=== PATIENT | male | born 1960 | race Hispanic/Latino ===

== ENCOUNTER 2020-05-08 12:24 | Emergency (ER) | payer BC, OTHER ==
[~2020-05-08] VITALS: Ht 167.6 cm; Wt 120.2 kg
[~2020-05-08 12:24] MED LIST: ASPIRIN81 M2 PO; CEFTIN500 MG PO; LEVAQUIN750 MG PO; Z LAMISIL; Z.0.ALBUTEROL SULF8. INH; Z.0.FLONASE16 GM; Z.0.LEVAQUIN500 MG PO; Z.0.PRAVASTATIN SOD4 PO; Z.2.METFORMIN HCL500 PO; Z.5.AMLODIPINE-BEN1 PO; [UNRECOGNIZED DRUG - OTHER] PO
[2020-05-08] MEDS ORDERED: AZITHROMYCIN250 MG PO (12:56)
--- NOTE | 2020-05-08 13:06 | Emergency Department Note ---
History of Present Illnes History of Present Illness Chief Complaint: COVID PUI History of Present Illness This is a 60 year old male arrives to the ED after being evaluated as an outpatient freestanding. Patient states he had chest x-ray done which showed a left lower lobe pneumonia. Patient states he is having bodyaches and had a cold exposure about 10 days ago. Patient states he had a cold with tests done last Friday which was negative. Patient states the bodyaches began several days ago which is what prompted him to go to the urgent care. Patient denies any shortness of breath denies any fevers denies any complaints states the bodyaches is what caused him to go to the urgent care as a follow-up. . 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 Any updates have been documented here. Past Medical History Recent Fever: No Clinical Suspicion of Infectio: No New/Unexplained Change in Ment: No Past Medical History: Hypertension, Diabetes, COPD, Kidney Stones, Hyperlipedemia Other Medical History: HLD Other Surgery: lithotripsy Social History Smoking Cessation: Former smoker Counseling Performed: No Alcohol Use: None Any Illegal Drug Use: No TB Exposure/Symptoms: No Physically hurt or threatened: No Family History Family history of heart diseas: Yes Other Last Tetanus: Unknown Last Flu: Y Last Pneumovax: Y Review of Systems Review of Systems Constitutional: Reports as per HPI, Reports weakness EENTM: Reports no symptoms Cardiovascular: Reports no symptoms Respiratory: Reports no symptoms Gastrointestinal: Reports no symptoms Genitourinary: Reports no symptoms Musculoskeletal: Reports no symptoms Integumentary: Reports no symptoms Neurological: Reports no symptoms Psychological: Reports no symptoms Endocrine: Reports no symptoms Hematological/Lymphatic: Reports no symptoms Physical Exam Related Data Allergies: Coded Allergies: ibuprofen (Verified Allergy, Intermediate, rash, 09/30/12) Triage Vital Signs Vital Signs Date Time Temp Pulse Resp B/P (MAP) Pulse Ox O2 Delivery O2 Flow Rate FiO2 05/08/20 12:42 99.4 82 18 147/77 96 Vital signs reviewed: Yes Physical Exam CONSTITUTIONAL Constitutional: Present well-developed, Present well-nourished HENT HENT: Present normocephalic, Present atraumatic, Present oropharynx clear/moist , Present nose normal HENT L/R: Present left ext ear normal, Present right ext ear normal EYES Eyes: Reports PERRL, Reports conjunctivae normal NECK Neck: Present ROM normal PULMONARY Pulmonary: Present effort normal, Present breath sounds normal CARDIOVASCULAR Cardiovascular: Present regular rhythm, Present heart sounds normal, Present capillary refill normal, Present normal rate GASTROINTESTINAL Abdominal: Present soft, Present nontender, Present bowel sounds normal GENITOURINARY Genitourinary: Present exam deferred SKIN Skin: Present warm, Present dry MUSCULOSKELETAL Musculoskeletal: Present ROM normal NEUROLOGICAL Neurological: Present alert, Present oriented x 3, Present no gross motor or sensory deficits PSYCHOLOGICAL Psychological: Present mood/affect normal, Present judgement normal Results Imaging Imaging results reviewed: Yes Assessment & Plan Medical Decision Making MDM 60-year-old male arrives the ED complains of body aches. Had a coworker test positive for Covid. Patient clinically appears very well, spoke to patient at length while he remained on a pulse oximeter and his oxygen saturation remained 98% even when speaking. Patient arrived with him with medics press chest x-ray results which showed a left lower lobe pneumonia. Given unilateral pneumonia normal oxygen saturation and otherwise well-appearing male patient is safe to discharge home. Patient informed of indications to return to the emergency department. Spoke to patient at length about appropriate proning techniques abd written information also given. Assessment & Plan Final Impression: (1) COVID-19 Depart Disposition: ADMITTED Last Vital Signs Date Time Temp Pulse Resp B/P (MAP) Pulse Ox O2 Delivery O2 Flow Rate FiO2 05/08/20 12:42 99.4 82 18 147/77 96 Home Meds Active Scripts Azithromycin (Z-DIDIER) 250 Mg Tablet, 1 PKG PO DIRECTED, #1 PKG 0 Refills Prov:LORE BAHSIMI, DO 05/08/20 Reported Medications Cefuroxime Axetil (CEFTIN) 500 Mg Tablet, PO 10/03/12 Levofloxacin (LEVAQUIN) 750 Mg Tablet, PO 10/03/12 Cefuroxime Axetil (CEFTIN) 500 Mg Tablet, PO 10/03/12 Albuterol Sulfate (Albuterol Sulfate Hfa) 8.5 Gm Hfa.aer.ad, 8.5 GM INH 03/09/12 Aspirin (Aspirin) 81 Mg Tablet, 81 MG PO DAILY 12/29/11 Hydroxyurea (Hydroxyurea) 500 Mg Capsule, 500 MG PO DAILY 12/29/11 Amlodipine Besylate/Benazepril (Amlodipine-Benazepril 10-20 Mg) 1 Each Capsule, 10 - 20 MG PO DAILY 12/29/11 Pravastatin Sodium (Pravastatin Sodium) 40 Mg Tablet, 40 MG PO DAILY 12/29/11 ALIDA BAH, May 08, 2020 13:06
== END 2020-05-08 13:04 | disposition home or self-care (01) ==
LOC: ER 12:24
DX: U07.1 COVID-19 (principal); I10 Essential (primary) hypertension; E11.9 Type 2 diabetes mellitus without complications; E78.5 Hyperlipidemia, unspecified; J44.9 Chronic obstructive pulmonary disease, unspecified; Z87.891 Personal history of nicotine dependence
CPT/HCPCS: 87635; 99282

== ENCOUNTER → 2020-06-07 | Outpatient (CLI) | payer BC, OTHER ==
[~2020-06-07] MED LIST changes: +AZITHROMYCIN250 MG PO
--- NOTE | 2020-06-07 10:44 | Diagnostic Imaging Report ---
EXAMINATION: CHEST 2 VIEWS INDICATION: Shortness of breath COMPARISON: None FINDINGS: LINES/TUBES:None LUNGS:The lungs are moderately inflated. Multifocal bilateral lower lung predominant opacities. PLEURA:Trace right pleural effusion. No pneumothorax. MEDIASTINUM:The cardiomediastinal silhouette appears normal in size and shape. Atherosclerotic calcifications of the thoracic aorta. BONES/SOFT TISSUES:No acute osseous injury. ABDOMEN:No free air under the diaphragm. IMPRESSION: Multifocal bilateral lower lung predominant patchy opacities, concerning for pneumonia in the proper clinical setting. Trace right pleural effusion. Signed by: Prisca Penn MD on 06/07/2020 10:41 AM
== END ==
LOC: RAD 10:05
PROVIDERS: ATTEND Internal Medicine
DX: R06.02 Shortness of breath (principal)
CPT/HCPCS: 71046

== ENCOUNTER → 2020-07-11 | Outpatient (CLI) | payer BC ==
--- NOTE | 2020-07-11 16:27 | Diagnostic Imaging Report ---
EXAM: CT Chest WITHOUT intravenous contrast - Interstitial lung disease protocol 07/11/2020 3:54 PM INDICATION: Pneumonia COMPARISON: Chest radiograph 06/07/2020 TECHNIQUE: Chest was scanned utilizing a multidetector helical scanner from the lung apex through the level of the adrenal glands without administration of IV contrast and then repeated with the patient in prone position in inspiration and expiration per ILD protocol. Coronal and sagittal reformations were obtained. Interstitial lung disease protocol was performed. IV CONTRAST: None RADIATION DOSE: Total DLP: 1645 mGy*cm. Dose modulation, iterative reconstruction, and/or weight based adjustment of the mA/kV was utilized to reduce the radiation dose to as low as reasonably achievable. COMPLICATIONS: None FINDINGS: LINES/ TUBES: None. LUNGS AND AIRWAYS: The central airways are patent. No focal consolidation or pulmonary mass lesion. Diffuse bilateral lower lobe predominant interstitial thickening without honeycombing which persists on the inspiratory and expiratory prone images. PLEURA: The pleural spaces are clear. HEART AND MEDIASTINUM: The thyroid gland is normal. No supraclavicular, axillary, or hilar lymphadenopathy. Multiple prominent mediastinal lymph nodes measure up to 9 mm short axis and do not meet size criteria for lymphadenopathy. The heart is not enlarged. No pericardial effusion. Atherosclerotic calcifications of the coronary arteries, thoracic aorta, and possible great vessels. UPPER ABDOMEN: Severe diffuse hepatic steatosis. 4 mm right upper pole renal calculus. No additional acute findings in the upper abdomen. BONES: No acute osseous injury. No suspicious lytic or blastic lesions. SOFT TISSUES: Unremarkable. IMPRESSION: Diffuse bilateral lower lobe predominant interstitial opacities without honeycombing. In the setting of recent reported history of COVID-19 viral pneumonia, these could represent post-infectious findings of improving multifocal viral pneumonia (imaging findings often lag behind clinical recovery) or alternatively chronic fibrotic changes related to nonspecific interstitial lung disease. Severe diffuse hepatic steatosis. Right upper pole 4mm renal calculus. Signed by: Prisca Penn MD on 07/11/2020 4:24 PM
== END ==
LOC: CT 14:59
PROVIDERS: ATTEND Internal Medicine
DX: J84.9 Interstitial pulmonary disease, unspecified (principal)
CPT/HCPCS: 71250

== ENCOUNTER → 2021-10-02 | Outpatient (CLI) | payer SELFPAY | LOC: RAD 13:12 | PROVIDERS: ATTEND Internal Medicine | DX: J15.9 Unspecified bacterial pneumonia (principal) | CPT/HCPCS: 71046 ==

== ENCOUNTER → 2024-08-20 | Day surgery (SDC) | payer BC, MEDICARE ==
[2024-08-17 09:59] LABS: BASOPHILS # (AUTO) 0.1 (0.0-0.1); EOSINOPHILS # (AUTO) 0.3 (0.0-0.4); EOSINOPHILS % 2.8 % (0.0-6.0); HEMATOCRIT 55.2 % (38.2-49.6); LYMPHOCYTES # (AUTO) 2.8 (1.0-3.2); LYMPHOCYTES % 27.1 % (18.0-39.1); MEAN CORPUSCULAR HEMOGLOBIN 29.1 pg (28-32); MEAN CORPUSCULAR HGB CONC 30.8 g/dL (31-35); MEAN CORPUSCULAR VOLUME 94.5 fL (81-99); MONOCYTES # (AUTO) 0.7 (0.2-0.8); MONOCYTES % 6.7 % (4.4-11.3); NEUTROPHILS # (AUTO) 6.3 (2.1-6.9); PLATELET COUNT 190 x10e3/uL (140-360); RED BLOOD COUNT 5.84 x10e6/uL (4.3-5.7); RED CELL DISTRIBUTION WIDTH 15.4 % (11.7-14.4); WHITE BLOOD COUNT 10.39 x10e3/uL (4.8-10.8)
[2024-08-17 10:30] LABS: ANION GAP 16.2 mmol/L (8-16); CALCIUM 8.9 mg/dL (8.4-10.2); CREATININE, SERUM 1.19 mg/dL (0.72-1.25); POTASSIUM 4.2 mmol/L (3.5-5.1)
[~2024-08-20] MED LIST changes: +AMLODIPINE BESY10 MG PO; +ASPIRIN81 MG PO; +BENAZEPRIL HCL10 MG PO; +BUPIVACAINE 0.5%/EPI 30 ML SDV INJ ONE; +DEXAMETHASONE SOD PHOS INJ 4 MG/ML SDV ONE; +FENTANYL CITRATE/PF 100MCG/2 ML INJ ONE; +HYDROMORPHONE 1MG/1ML INJ ONE; +LIDOCAINE HCL 2% LOCAL INJ 5 ML SDV VIAL INJ ONE; +METFORMIN HCL500 MG PO; +METOPROLOL SUCC50 MG PO; +MIDAZOLAM HCL 2 MG/2 ML VIAL ONE; +MOUNJARO5 MG/0.5 M SC; +ONDANSETRON HCL INJ 2MG/ML 2ML 2 MG/ML VIAL ONE; +PROPOFOL IV EMULSION 10 MG/ML 20 ML VIAL ONE; +ROCURONIUM BROMIDE 10 MG/ML 5ML VIAL IV ONE; +SEVOFLURANE INHAL SOLN 250 ML PEN BTL ONE; +TRELEGY ELLIPT1 EACH INH; +ZYRTEC-D TABLE1 EACH PO
[2024-08-20] MEDS: LACTATED RINGER'S 1,000 ML ONE (10:48)
[2024-08-20 14:07] VITALS: TEMP 98.6
[2024-08-20 15:15] VITALS: BP 123/73; PULSE 65; RESP 16; O2SAT 97
== END | disposition home or self-care (01) ==
LOC: OR 08:32
PROVIDERS: ATTEND Surgery
DX: K42.9 Umbilical hernia without obstruction or gangrene (principal); G47.33 Obstructive sleep apnea (adult) (pediatric); E11.9 Type 2 diabetes mellitus without complications; I10 Essential (primary) hypertension; E78.5 Hyperlipidemia, unspecified; J44.9 Chronic obstructive pulmonary disease, unspecified; G89.29 Other chronic pain; M06.9 Rheumatoid arthritis, unspecified; M19.90 Unspecified osteoarthritis, unspecified site; N20.0 Calculus of kidney; E66.01 Morbid (severe) obesity due to excess calories; Z88.8 Allergy status to other drugs, medicaments and biological substances; Z01.810 Encounter for preprocedural cardiovascular examination; Z01.812 Encounter for preprocedural laboratory examination; Z01.818 Encounter for other preprocedural examination; Z79.82 Long term (current) use of aspirin; Z79.84 Long term (current) use of oral hypoglycemic drugs; Z79.85 Long-term (current) use of injectable non-insulin antidiabetic drugs
CPT/HCPCS: 36415; 49593; 71046; 80048; 85025; 93005; C1781; J1100; J1171; J2003; J2250; J2405; J2704; J3010; J7121